=== PATIENT | male | born 1995 | race Caucasian/White ===

== ENCOUNTER 2016-07-10 05:57 | Emergency (ER) | payer OTHER, BC ==
[~2016-07-10] VITALS: Ht 177.8 cm; Wt 67.1 kg
[2016-07-10 05:57] VITALS: BP 149/90; PULSE 87; RESP 20; TEMP 97.8; O2SAT 97
--- NOTE | 2016-07-10 06:00 | NUR ---
Patient to ER bed 4 to gown for evaluation. Side rails up.
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
--- NOTE | 2016-07-10 06:19 | NUR ---
ER at bedside examining patient.
[2016-07-10] MEDS ORDERED: IBUPROFEN 600 MG TABLET PO ONE (06:45)
[2016-07-10] MEDS ORDERED: BACITRACIN 1 GM OINT TP ONE (06:45)
--- NOTE | 2016-07-10 07:15 | NUR ---
PT AAO X 4 NO ACUTE DISTRESS NOTED. PT REPORTS PAIN 3/10 CONITNUING TO RESOLVE.
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
[2016-07-10 07:30] VITALS: BP 140/88; PULSE 86; RESP 20; TEMP 97.8; O2SAT 97
--- NOTE | 2016-07-10 07:30 | NUR ---
Patient AND PARENT given written and verbal discharge instructions and verbalizes understanding. ER MD discussed with patient the results and treatment provided. Patient in stable condition. ID arm band removed. Rx of MOTRIN given. Patient educated on pain management and to follow up with PMD. Pain Scale 3. Opportunity for questions provided and answered.
--- NOTE | 2016-07-10 07:40 | NUR ---
Sherman montero in [facility] - 07/10/16 at 0755 by ROSINA Stable condition, alert and oriented x4.
== END 2016-07-10 07:30 | disposition home or self-care (01) ==
LOC: SED 05:57
DX: S01.01XA Laceration without foreign body of scalp, initial encounter (principal); S70.211A Abrasion, right hip, initial encounter; R03.0 Elevated blood-pressure reading, without diagnosis of hypertension; V19.9XXA Pedal cyclist (driver) (passenger) injured in unspecified traffic accident, initial encounter; Y93.89 Activity, other specified; Y99.8 Other external cause status; Y92.89 Other specified places as the place of occurrence of the external cause
CPT/HCPCS: 99283